=== PATIENT | male | born 2000 | race Caucasian/White ===

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

== ENCOUNTER 2020-11-30 16:55 | Emergency (ER) | payer BC ==
[2020-11-30 17:11] VITALS: BP 159/108; PULSE 106; TEMP 99.5; BMI 30.2
[2020-11-30] MEDS ORDERED: valACYclovir HCL 1000 MG TABLET PO ONE (17:17)
[2020-11-30] MEDS ORDERED: valACYclovir HCL 500 MG TABLET (FP) ONE (17:26)
== END 2020-11-30 17:49 | disposition home or self-care (01) ==
LOC: FER 16:55
DX: B00.2 Herpesviral gingivostomatitis and pharyngotonsillitis (principal); K13.79 Other lesions of oral mucosa
CPT/HCPCS: 36415; 87070; 87205; 87529; 99283-25

== ENCOUNTER 2024-05-11 17:06 | Emergency (ER) | payer OTHER, BC ==
[2024-05-11 17:16] VITALS: BP 157/93; PULSE 87; RESP 18; TEMP 98.6; BMI 30.6
[2024-05-11] MEDS ORDERED: LIDOCAINE 4% PATCH TP ONE (18:22)
[2024-05-11] MEDS ORDERED: ACETAMINOPHEN 500 MG TABLET (FP) ONE (18:22)
[2024-05-11] MEDS ORDERED: KETOROLAC TROMETHAMINE 30 MG/1 ML VIAL ONE (18:22)
[2024-05-11] MEDS: KETOROLAC TROMETHAMINE 30 MG/1 ML VIAL IM ONE (18:27)
[2024-05-11] MEDS: ACETAMINOPHEN 500 MG TABLET (FP) PO ONE (18:27)
[2024-05-11] MEDS: LIDOCAINE 4% PATCH TP ONE (18:27)
[2024-05-11] MEDS ORDERED: LIDOCAINE PATCH REMOVAL MC SCH (22:00)
== END 2024-05-11 19:28 | disposition home or self-care (01) ==
LOC: JERFT 17:06
PROC: 3E0233Z Introduction of Anti-inflammatory into Muscle, Percutaneous Approach (ICD-10-PCS; principal; 2024-05-11)
DX: M54.2 Cervicalgia (principal); R07.81 Pleurodynia; M62.838 Other muscle spasm; R07.89 Other chest pain; V49.40XA Driver injured in collision with unspecified motor vehicles in traffic accident, initial encounter; Y92.410 Unspecified street and highway as the place of occurrence of the external cause
CPT/HCPCS: 71046-TC-FY; 71101-TC-LT-FY; 71101-TC-RT-FY; 99284-25

== ENCOUNTER 2024-05-13 15:22 | Emergency (ER) | payer OTHER, BC ==
[2024-05-13 15:30] VITALS: BP 159/92; PULSE 108; RESP 18; TEMP 97.9; BMI 30.6
[2024-05-13] MEDS ORDERED: METHOCARBAMOL 500 MG TABLET ONE (16:47)
[2024-05-13] MEDS ORDERED: IBUPROFEN 400 MG TABLET (FP) PO ONE (16:47)
[2024-05-13] MEDS ORDERED: ACETAMINOPHEN 500 MG TABLET (FP) ONE (16:47)
[2024-05-13] MEDS: ACETAMINOPHEN 500 MG TABLET (FP) PO ONE (16:49)
[2024-05-13] MEDS: METHOCARBAMOL 500 MG TABLET PO ONE (16:49)
[2024-05-13] MEDS: IBUPROFEN 400 MG TABLET (FP) PO ONE (16:49)
== END 2024-05-13 17:56 | disposition home or self-care (01) ==
LOC: JERFT 15:22
DX: R51.9 Headache, unspecified (principal); M25.562 Pain in left knee; M79.10 Myalgia, unspecified site; V49.40XA Driver injured in collision with unspecified motor vehicles in traffic accident, initial encounter
CPT/HCPCS: 73562-TC-LT-FY; 99283-25